=== PATIENT | male | born 1955 | race Two or more races ===

== ENCOUNTER 2023-02-23 16:54 | Emergency (ER) | payer OTHER ==
[~2023-02-23] VITALS: Ht 167.6 cm; Wt 83.0 kg
[2023-02-23] MEDS ORDERED: MILLIPRED5 MG PO (17:23)
[2023-02-23] MEDS ORDERED: ZYTIGA250 MG PO (17:23)
[2023-02-23] MEDS ORDERED: OZEMPIC2 MG/0.75 SQ (17:24)
[2023-02-23] MEDS ORDERED: ZESTRIL5 MG PO (17:24)
[2023-02-23] MEDS ORDERED: CRESTOR10 MG PO (17:24)
[2023-02-23] MEDS ORDERED: TAMS0.4C PO (17:24)
[2023-02-23] MEDS ORDERED: HUMALOG100 UNIT/2 SQ (17:26)
[2023-02-23 19:11] LABS: HEMATOCRIT 41.8 % (39.0-48.0); HEMOGLOBIN 14.3 g/dL (13-16.00); MEAN CELL VOLUME 92.1 fL (80.0-100.00); MEAN CORPUSCULAR HEMOGLOBIN 31.6 pg (27.00-32.0); MEAN CORPUSCULAR HGB CONC 34.3 g/dl (32.0-36.0); PLATELET COUNT 211 K/uL (150-450); RED BLOOD COUNT 4.54 M/uL (4.00-6.00); RED CELL DISTRIBUTION WIDTH 12.9 % (11.5-14.5)
[2023-02-23 19:12] LABS: PH,URINE 5.5 (5.0-8.0); URINE APPEARANCE Clear; URINE BILIRRUBIN Negative (NEGATIVE); URINE BLOOD Trace; URINE COLOR Dark Yellow; URINE GLUCOSE Negative (NEGATIVE); URINE LEUKOCYTE Negative; URINE NITRATE Negative; URINE PROTEIN 30 (NEGATIVE)
[2023-02-23 19:15] LABS: URINE BACTERIA 16.3 uL (0.0-1933); URINE EPITHELIAL CELLS 5.2 uL (0.0-38.8); URINE RBC 45.4 uL (0.0-20.8); URINE WBC 3.7 uL (0.0-23.2)
[2023-02-23 19:53] LABS: ALBUMIN 3.8 gm/dL (3.4-5.0); BILIRUBIN TOTAL 1.16 mg/dL (0.3-1.2); CALCIUM 9.9 mg/dL (8.5-10.1); CREATININE SERUM 1.09 mg/dL (0.70-1.30); GFR 66.88; GLOBULINA 3.2 G/DL (2.4-3.5); POTASSIUM 3.74 mEq/L (3.5-5.1)
== END 2023-02-23 23:18 | disposition home or self-care (01) ==
LOC: ER 16:55
PROVIDERS: Emergency Medicine
DX: M54.9 Dorsalgia, unspecified (principal); Z85.46 Personal history of malignant neoplasm of prostate; I10 Essential (primary) hypertension; E78.00 Pure hypercholesterolemia, unspecified; K57.30 Diverticulosis of large intestine without perforation or abscess without bleeding
CPT/HCPCS: 36415; 72100; 74176; 74240; 96372; 99284; J1885; J2360